=== PATIENT | female | born 1935 | race Native Hawaiian/Other Pacific Islander ===

== ENCOUNTER → 2016-07-14 | Outpatient (CLI) | payer MEDICARE, OTHER | LOC: RAD 14:18 | PROVIDERS: ATTEND Family Medicine | DX: M25.561 Pain in right knee (principal) ==

== ENCOUNTER → 2016-08-18 | Outpatient (CLI) | payer MEDICARE, OTHER | LOC: RAD 12:06 | PROVIDERS: ATTEND Orthopaedic Surgery | DX: M25.561 Pain in right knee (principal); M94.261 Chondromalacia, right knee ==

== ENCOUNTER → 2016-10-06 | Outpatient (CLI) | payer MEDICARE, OTHER ==
[2016-10-06 08:12] LABS: HEMATOCRIT 41.6 % (36.0-47.0); HEMOGLOBIN 13.9 g/dL (12.0-15.5); HGB HCT DIFFERENCE 0.1; MEAN CORPUSCULAR HGB CONC 33.5 g/dL (32.0-36.0); MEAN CORPUSCULAR VOLUME 87 fl (80-97); RED CELL DISTRIBUTION WIDTH 13.9 % (11.5-14.0); WHITE BLOOD COUNT 8.8 10^3/uL (4.0-10.5)
[2016-10-06 08:32] LABS: ALANINE AMINOTRANSFERASE 56 U/L (9-52); ALBUMIN 4.3 g/dL (3.5-5.0); ALKALINE PHOSPHATASE 128 U/L (38-126); ASPARTATE AMINO TRANSFERASE 44 U/L (14-36); BILIRUBIN,DIRECT 0.2 mg/dL (0.0-0.4); BILIRUBIN,TOTAL 0.5 mg/dL (0.2-1.3); CHOLESTEROL 239.43 mg/dL (0-200); Direct HDL 36 mg/dL (>40); TOTAL PROTEIN 6.8 g/dL (6.3-8.2); TRIGLYCERIDES 246 mg/dL (<150)
[2016-10-06 08:37] LABS: ANION GAP 11 (5-19); BLOOD UREA NITROGEN 18 mg/dL (7-20); CALCIUM 9.8 mg/dL (8.4-10.2); CARBON DIOXIDE 25 mmol/L (22-30); CHLORIDE 108 mmol/L (98-107); CREATININE RESULT 0.82 mg/dL (0.52-1.25); GLUCOSE 152 mg/dL (75-110); POTASSIUM 4.4 mmol/L (3.6-5.0); SODIUM 143.9 mmol/L (137-145)
[2016-10-06 08:43] LABS: DIRECT LDL 119 mg/dL (<100)
[2016-10-06 08:47] LABS: VLDL CHOLESTEROL 49.2 mg/dL (10-31)
== END ==
LOC: OD 07:17
PROVIDERS: ATTEND Internal Medicine Cardiovascular Disease
DX: R00.2 Palpitations (principal); E78.5 Hyperlipidemia, unspecified; E13.9 Other specified diabetes mellitus without complications; Z79.899 Other long term (current) drug therapy
CPT/HCPCS: 36415; 80048; 80061; 80076; 83036; 84443; 85027

== ENCOUNTER 2017-01-30 22:59 | Emergency (ER) | payer MEDICARE, OTHER ==
[2017-01-30 23:54] VITALS: BP 158/59
--- NOTE | 2017-01-31 00:47 | ER Document Report ---
ED General - General Chief Complaint: R ankle pain, numbness Stated Complaint: RIGHT ANKLE PAIN Time Seen by Provider: 01/31/17 00:32 Notes: 81-year-old female presents with right inner foot and ankle pain "it is blue" and numbness and tingling from her midfoot to her ankle onset a couple of hours ago, constant, now better after the compression sock was removed, in the setting of wearing a tight compression sock postop day 7 from a lateral knee replacement. She walks with a walker and has been elevating it. She has no calf swelling. Incision looks well with no redness or fever. She was sent here when she tried to call her orthopedist office. TRAVEL OUTSIDE OF THE [place] IN LAST 30 DAYS: No - Related Data Allergies/Adverse Reactions: aspirin [Aspirin] Allergy (Severe, Verified 11/05/13 09:13) itching on left heel erythromycin base [Erythromycin Base] Allergy (Severe, Verified 11/05/13 09:13) eye swelling simvastatin [Simvastatin] Allergy (Severe, Verified 11/05/13 09:13) unsure rxn sulfamethoxazole [From Septra] Allergy (Intermediate, Verified 11/05/13 09:13) Hives trimethoprim [From Septra] Allergy (Intermediate, Verified 11/05/13 09:13) Hives Past Medical History - General Information source: Patient - Social History Smoking Status: Never Smoker Family History: Reviewed & Not Pertinent - Past Medical History Cardiac Medical History: Reports: Hx Hypercholesterolemia, Hx Hypertension - on meds Denies: Hx Coronary Artery Disease, Hx Heart Attack Pulmonary Medical History: Reports: Hx Asthma - hx of//no meds, Hx Bronchitis - 2005, Hx Pneumonia Denies: Hx COPD Neurological Medical History: Denies: Hx Cerebrovascular Accident, Hx Seizures Endocrine Medical History: Reports: Hx Diabetes Mellitus Type 2 - diet controlled Renal/ Medical History: Denies: Hx Peritoneal Dialysis Musculoskeltal Medical History: 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 Denies: Hx Pacemaker - Immunizations Hx Diphtheria, Pertussis, Tetanus Vaccination: Yes Hx Pneumococcal Vaccination: 04/01/15 Review of Systems - Review of Systems Notes: REVIEW OF SYSTEMS GEN: Denies fever, chills, weight loss ENT: Denies sore throat, nasal discharge, ear pain EYES: Denies blurry vision, eye pain, discharge CV: Denies chest pain, palpitations, edema RESP: Denies cough, shortness of breath, wheezing GI: Denies abdominal pain, nausea, vomiting, diarrhea MSK: Denies joint pain/swelling, edema, SKIN: Denies rash, skin lesions LYMPH: Denies swollen glands/lymph nodes NEURO: Right inner foot PSYCH: Denies depression, suicidal or homicidal ideation PHYSICAL EXAMINATION General: No acute distress, well-nourished Head: Atraumatic, normocephalic ENT: Mouth normal, oropharynx moist, no exudates or tonsillar enlargement Eyes: Conjunctiva normal, pupils equal, lids normal Neck: No JVD, supple, no guarding CVS: Normal rate, regular rhythm, no murmurs Resp: No resp distress, equal and normal breath sounds bilaterally GI: Nondistended, soft, no tenderness to palpation, no rebound or guarding Ext: No deformities, right total knee replacement incision healing well with no significant edema or redness. No calf swelling. Mild swelling of the ankle at the site the patient indicates with no visible discoloration, good pulses, and full range of motion. T Back: No CVA or midline TTP Skin: No rash, warm Lymphatic: No lymphadeopathy noted Neuro: Awake, alert. Face symmetric. GCS 15. Subjective decreased sensation to light touch only on the medial left foot. Intact sensation to pinch ipsilateral to symptoms compared to contralateral side. Physical Exam - Vital signs Vitals: Temp Pulse Resp BP Pulse Ox 98.4 F 78 16 158/59 H 94 01/30/17 23:48 01/30/17 23:48 01/30/17 23:48 01/30/17 23:48 01/30/17 23:48 Course - Re-evaluation Re-evalutation: 01/31/17 00:51 Subjective skin discoloration and swelling in the distal right ankle below knee replacement in the setting of walking. Nurse found compression stocking pulled all the way down around the patient's ankle. When this was removed the color improved. I think the numbness is due to swelling rather than a nerve injury from the surgery or an acute arterial occlusion. She has a little bit of edema so this may be due to a DVT however we are not able to obtain ultrasound of the ED tonight and she is quite stable. Already taking Plavix. I arrange for her to have ultrasound in the morning and follow-up with Dr. morley which I think is an appropriate disposition. I have discussed with the patient there likely diagnosis, aftercare plan, follow -up plans and my usual and customary return precautions. They verbalized understanding of this. - Vital Signs Vital signs: Temp Pulse Resp BP Pulse Ox 98.4 F 78 16 158/59 H 94 01/30/17 23:48 01/30/17 23:48 01/30/17 23:48 01/30/17 23:48 01/30/17 23:48 Discharge - Discharge Clinical Impression: Numbness of right foot Condition: Good Disposition: HOME, SELF-CARE Additional Instructions: Emergency department for swelling and numbness to your right foot about a week after your knee surgery. Her numbness could be due to the swelling itself which is usually due to gravity but can be due to a blood clot. We are unable to perform testing for a blood clot tonight in the emergency department however if you call the phone number listed under discharge instructions can schedule ultrasound for tomorrow morning. Your orthopedic surgeon will be the results of the study. Her ultrasound is abnormally will be directed immediately to the emergency department otherwise she will be sent home and your doctor can follow- up your testing results.
== END 2017-01-31 01:03 | disposition home or self-care (01) ==
LOC: ER 22:59
DX: R20.0 Anesthesia of skin (principal); M25.571 Pain in right ankle and joints of right foot; M25.471 Effusion, right ankle; M79.671 Pain in right foot; R60.9 Edema, unspecified; E11.9 Type 2 diabetes mellitus without complications; I10 Essential (primary) hypertension; J45.909 Unspecified asthma, uncomplicated; Z96.651 Presence of right artificial knee joint; Z88.6 Allergy status to analgesic agent; Z88.1 Allergy status to other antibiotic agents; Z88.8 Allergy status to other drugs, medicaments and biological substances; Z79.02 Long term (current) use of antithrombotics/antiplatelets
CPT/HCPCS: 99283

== ENCOUNTER → 2017-01-31 | Outpatient (CLI) | payer MEDICARE, OTHER ==
--- NOTE | 2017-01-31 13:39 | RADIOLOGY REPORT (SQ) ---
EXAM DESCRIPTION: VENOUS UNILATERAL LOWER COMPLETED DATE/TIME: 01/31/2017 1:32 pm REASON FOR STUDY: RLE SWELLING M79.89 OTHER SPECIFIED SOFT TISSUE DISORDERS COMPARISON: None. TECHNIQUE: Dynamic and static patel scale and color images acquired of the right leg venous system. S elected spectral images acquired with additional compression and augmentation maneuvers. The contrala teral common femoral vein and saphenofemoral junction were also imaged. Images stored on PACS. LIMITATIONS: None. FINDINGS: COMMON FEMORAL: Normal phasicity, compression and augmentation. No visualized echogenic ma terial on patel scale. No defects on color images. FEMORAL: Normal compression and augmentation. No visualized echogenic material on patel scale. No defe cts on color images. POPLITEAL: Normal compression, augmentation. No visualized echogenic material on patel scale. No defec ts on color images. CALF VESSELS: Normal compression, augmentation. No visualized echogenic material on patel scale. No de fects on color images. GSV and SSV: Normal compression, augmentation. No visualized echogenic material on patel scale. No def ects on color images. ANY DEEP VENOUS INSUFFICIENCY: Not evaluated. ANY EVIDENCE OF POPLITEAL CYST: No. OTHER: No other significant finding. CONTRALATERAL COMMON FEMORAL VEIN AND SAPHENOFEMORAL JUNCTION: Normal phasicity, compression and augmentation. No visualized echogenic material on patel scale. No de fects on color images. IMPRESSION: NO EVIDENCE OF DVT OR SVT IN THE RIGHT LEG. TECHNICAL DOCUMENTATION: JOB ID: [id number] [employer]- All Rights Reserved
== END ==
LOC: SP 12:58
PROVIDERS: ATTEND Emergency Medicine
DX: M79.89 Other specified soft tissue disorders (principal)
CPT/HCPCS: 93971

== ENCOUNTER 2017-02-05 16:32 | Emergency (ER) | payer MEDICARE, OTHER ==
--- NOTE | 2017-02-05 17:25 | ER Document Report ---
ED General - General Chief Complaint: Urinary Problem Stated Complaint: UNABLE TO URINATE Time Seen by Provider: 02/05/17 16:55 TRAVEL OUTSIDE OF THE [place] IN LAST 30 DAYS: No - Related Data Allergies/Adverse Reactions: aspirin [Aspirin] Allergy (Severe, Verified 02/05/17 16:43) itching on left heel erythromycin base [Erythromycin Base] Allergy (Severe, Verified 02/05/17 16:43) eye swelling simvastatin [Simvastatin] Allergy (Severe, Verified 02/05/17 16:43) unsure rxn sulfamethoxazole [From Septra] Allergy (Intermediate, Verified 02/05/17 16:43) Hives trimethoprim [From Septra] Allergy (Intermediate, Verified 02/05/17 16:43) Hives Past Medical History - Social History Smoking Status: Never Smoker Cigarette use (# per day): No Chew tobacco use (# tins/day): No Smoking Education Provided: No Family History: Reviewed & Not Pertinent - Past Medical History Cardiac Medical History: Reports: Hx Hypercholesterolemia, Hx Hypertension - on meds Denies: Hx Coronary Artery Disease, Hx Heart Attack Pulmonary Medical History: Reports: Hx Asthma - hx of//no meds, Hx Bronchitis - 2005, Hx Pneumonia Denies: Hx COPD Neurological Medical History: Denies: Hx Cerebrovascular Accident, Hx Seizures Endocrine Medical History: Reports: Hx Diabetes Mellitus Type 2 - diet controlled Renal/ Medical History: Denies: Hx Peritoneal Dialysis Musculoskeltal Medical History: 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 Denies: Hx Pacemaker - Immunizations Hx Diphtheria, Pertussis, Tetanus Vaccination: Yes Hx Pneumococcal Vaccination: 04/01/15 Physical Exam - Vital signs Vitals: Temp Pulse Resp BP Pulse Ox 97.7 F 94 18 127/67 H 95 02/05/17 16:41 02/05/17 16:41 02/05/17 16:41 02/05/17 16:41 02/05/17 16:41 Course - Re-evaluation Re-evalutation: 02/05/17 17:24 Mendoza catheter was immediately placed, small amount of urine was obtained but then it got stuck in the Mendoza, I have asked the tech to flush the Mendoza - Vital Signs Vital signs: Temp Pulse Resp BP Pulse Ox 97.7 F 94 18 127/67 H 95 02/05/17 16:41 02/05/17 16:41 02/05/17 16:41 02/05/17 16:41 02/05/17 16:41 - Laboratory Result Diagrams: 02/05/17 18:00 02/05/17 18:00 Laboratory results interpreted by me: 02/05/17 02/05/17 02/05/17 17:43 18:00 18:00 WBC 10.8 H Est GFR ( Amer) 52 L Est GFR (Non-Af Amer) 43 L Glucose 112 H AST 37 H Urine Protein 100 H Urine Blood LARGE H Ur Leukocyte Esterase MODERATE H Urine Ascorbic Acid 40 H Discharge - Discharge Clinical Impression: UTI (urinary tract infection) Qualifiers: Urinary tract infection type: acute cystitis Hematuria presence: with hematuria Qualified Code(s): N30.01 - Acute cystitis with hematuria Condition: Stable Disposition: HOME, SELF-CARE Instructions: Urinary Tract Infection ([facility]) Prescriptions: Cephalexin Monohydrate [Keflex 500 mg Capsule] 500 mg PO BID #20 capsule Referrals: AUDREY CAMARGO MD [Primary Care Provider] - Follow up tomorrow
[2017-02-05] MEDS ORDERED: NORMAL SALINE 1000 ML 1,000 ML IV ONE (17:42)
[2017-02-05 18:15] LABS: APPEARANCE,URINE TURBID; BILIRUBIN,URINE NEGATIVE (NEGATIVE); GLUCOSE, URINE NEGATIVE (NEGATIVE); KETONES,URINE NEGATIVE (NEGATIVE); LEUKOCYTE ESTERASE,URINE MODERATE (NEGATIVE); NITRITE,URINE NEGATIVE (NEGATIVE); PROTEIN,URINE 100 mg/dL (NEGATIVE); URINE SPECIFIC GRAVITY 1.028; UROBILINOGEN,URINE NEGATIVE mg/dL (<2.0)
[2017-02-05] MEDS ORDERED: CEFTRIAXONE 1 GM/D5W RTU 50 ML IV ONE (18:25)
[2017-02-05 18:26] LABS: ABSOLUTE BASOPHILS # (AUTO) 0.1 10^3/uL (0.0-0.2); ABSOLUTE EOSINOPHILS # (AUTO) 0.4 10^3/uL (0.0-0.6); ABSOLUTE LYMPHOCYTES (AUTO) 2.4 10^3/uL (0.5-4.7); ABSOLUTE MONOCYTES (AUTO) 1.1 10^3/uL (0.1-1.4); ABSOLUTE NEUT (AUTO) 6.8 10^3/uL (1.7-8.2); BASOPHILS % (AUTO) 0.6 % (0-2); EOSINOPHILS % (AUTO) 3.9 % (0-6); HEMATOCRIT 36.6 % (36.0-47.0); HEMOGLOBIN 12.3 g/dL (12.0-15.5); HGB HCT DIFFERENCE 0.3; LYMPHOCYTES % (AUTO) 22.1 % (13-45); MEAN CORPUSCULAR HEMOGLOBIN 29.6 pg (27.0-33.4); MEAN CORPUSCULAR HGB CONC 33.5 g/dL (32.0-36.0); MEAN CORPUSCULAR VOLUME 88 fl (80-97); MONOCYTES % (AUTO) 10.6 % (3-13); RED BLOOD COUNT 4.14 10^6/uL (3.72-5.28); RED CELL DISTRIBUTION WIDTH 13.5 % (11.5-14.0); SEGMENTED NEUTROPHILS % (AUTO) 62.8 % (42-78); WHITE BLOOD COUNT 10.8 10^3/uL (4.0-10.5)
--- NOTE | 2017-02-05 18:43 | RADIOLOGY REPORT (SQ) ---
EXAM DESCRIPTION: CT LTD RENAL STONE PROTOCOL ON COMPLETED DATE/TIME: 02/05/2017 6:29 pm REASON FOR STUDY: difficulty urinating COMPARISON: None. TECHNIQUE: CT scan of the abdomen and pelvis performed without intravenous or oral contrast. Images reviewed with lung, soft tissue, and bone windows. Reconstructed coronal and sagittal MPR images revi ewed. All images stored on PACS. All CT scanners at this facility use dose modulation, iterative reconstruction, and/or weight based d osing when appropriate to reduce radiation dose to as low as reasonably achievable (ALARA). [facility]: Dose Right [facility]: CareDose [facility]: Dose Right [facility]: Teradose 4D [facility]: Smart Extenda-Dent RADIATION DOSE: Up-to-date CT equipment and radiation dose reduction techniques were employed. CTDIv ol: 12.5 mGy. DLP: 606 mGy-cm.mGy. LIMITATIONS: None. FINDINGS: LOWER CHEST: No significant findings. No nodules or infiltrates. NON-CONTRASTED LIVER, SPLEEN, ADRENALS: Evaluation limited by lack of IV contrast. No identified sign ificant masses. PANCREAS: No masses. No peripancreatic inflammatory changes. GALLBLADDER: No identified stones by CT criteria. No inflammatory changes to suggest cholecystitis. RIGHT KIDNEY AND URETER: No suspicious masses. Assessment limited by lack of IV contrast. Tiny nono bstructing right renal calculus is identified. No hydronephrosis or hydroureter. LEFT KIDNEY AND URETER: No suspicious masses. Assessment limited by lack of IV contrast. No signifi cant calcifications. No hydronephrosis or hydroureter. AORTA AND RETROPERITONEUM: No aneurysm. No retroperitoneal masses or adenopathy. BOWEL AND PERITONEAL CAVITY: No obvious masses or inflammatory changes. No free fluid. APPENDIX: Normal. PELVIS, BLADDER, AND ABDOMINAL WALL:No abnormal masses. No free fluid. Bladder is in a decompressed state. Mendoza catheter is identified in the bladder. A small amount of air is identified in the blad jhoana presumably related to the Mendoza catheter. BONES: No significant findings. OTHER: No other significant finding. IMPRESSION: Small nonobstructing right renal calculus. No other renal ureteric calculi are identifi ed. Mendoza catheter is identified in the bladder. A small amount of air is identified in the bladder presumably related to the Mendoza catheter. Other findings as noted above TECHNICAL DOCUMENTATION: JOB ID: [id number] Quality ID # [id number]: Final reports with documentation of one or more dose reduction techniques (e.g., Au tomated exposure control, adjustment of the mA and/or kV according to patient size, use of iterative reconstruction technique) 2010 [employer]- All Rights Reserved
[2017-02-05 18:50] LABS: ALANINE AMINOTRANSFERASE 45 U/L (9-52); ALBUMIN 3.9 g/dL (3.5-5.0); ALKALINE PHOSPHATASE 94 U/L (38-126); ANION GAP 9 (5-19); ASPARTATE AMINO TRANSFERASE 37 U/L (14-36); BILIRUBIN,DIRECT 0.4 mg/dL (0.0-0.4); BILIRUBIN,TOTAL 0.6 mg/dL (0.2-1.3); BLOOD UREA NITROGEN 20 mg/dL (7-20); CALCIUM 9.4 mg/dL (8.4-10.2); CARBON DIOXIDE 25 mmol/L (22-30); CHLORIDE 105 mmol/L (98-107); GLUCOSE 112 mg/dL (75-110); POTASSIUM 4.5 mmol/L (3.6-5.0); SODIUM 138.9 mmol/L (137-145); TOTAL PROTEIN 7.1 g/dL (6.3-8.2)
[2017-02-05 20:01] VITALS: BP 132/52
== END 2017-02-05 20:30 | disposition home or self-care (01) ==
LOC: ER 16:32
DX: N30.01 Acute cystitis with hematuria (principal); R39.198 Other difficulties with micturition
CPT/HCPCS: 99284; 96361; 51702; 96365; 36415; 87086; 85025; 87088; 80053; 81001; 87186; 83605; 76380; J7030; J0696

== ENCOUNTER → 2017-07-09 | Outpatient (CLI) | payer MEDICARE, OTHER ==
[2017-07-09 18:14] LABS: T.VAGINALIS (WET MOUNT) NO TRICHOMONAS SEEN
[2017-07-09 18:15] LABS: BACTERIA (WET MOUNT) 3+ BACTERIA SEEN; EPITHELIALS (WET MOUNT) 4+ EPITHELIALS SEEN; WBCS (WET MOUNT) RARE WBCS SEEN; YEAST (WET MOUNT) NO YEAST SEEN
== END ==
LOC: LAB 17:48
PROVIDERS: ATTEND Nurse Practitioner Acute Care
DX: N89.8 Other specified noninflammatory disorders of vagina (principal); R30.0 Dysuria
CPT/HCPCS: 87086; 87088; 87210

== ENCOUNTER → 2017-12-12 | Outpatient (CLI) | payer MEDICARE, OTHER ==
--- NOTE | 2017-12-12 12:46 | RADIOLOGY REPORT (SQ) ---
EXAM DESCRIPTION: U/S THYROID/SFT TISS HD NECK COMPLETED DATE/TIME: 12/12/2017 10:46 am REASON FOR STUDY: THYROID NODULE (E04.1) E04.1 NONTOXIC SINGLE THYROID NODULE COMPARISON: None. TECHNIQUE: Dynamic and static patel-scale images acquired of the thyroid gland. Selected additional c olor/power Doppler images recorded. All images stored to PACS. LIMITATIONS: None. FINDINGS: The thyroid gland is grossly normal size, but diffusely heterogeneous in echogenicity with multiple bilateral less than 1 cm colloid cysts and small less than 1 cm nodules present. Right lobe thyroid measures 5 x 2 x 1.5 cm in size. Left lobe thyroid measures 4.4 x 3 x 2.4 cm in size. In the mid pole left lobe thyroid, a 2.7 x 3 cm complex solid nodule is present. IMPRESSION: Left midpole gland complex 2.7 x 3 cm solid nodule. Fine-needle aspirate of this is rec ommended. Remainder of the thyroid gland demonstrates multiple subcentimeter benign colloid cysts and subcentim eter benign-appearing nodules. TECHNICAL DOCUMENTATION: JOB ID: [id number] [employer]- All Rights Reserved Reading location - IP/workstation name: [email or web address]
== END ==
LOC: RAD 09:15
PROVIDERS: ATTEND Family Medicine
DX: E04.1 Nontoxic single thyroid nodule (principal)
CPT/HCPCS: 76536

== ENCOUNTER → 2018-10-10 | Outpatient (CLI) | payer MEDICARE, OTHER ==
--- NOTE | 2018-10-10 17:46 | XCELERA REPORT ---
[address] [address] Transthoracic Echocardiogram Report Name: BHARAT TOMPKINS Age: 83 yrs Gender: Female : 1935 Patient Status: Outpatient Patient Location: [facility] Study Date: 10/10/2018 10:23 AM Height: 59 in Weight: 170 lb BSA: 1.7 m2 Procedure: A complete two-dimensional transthoracic echocardiogram was performed (2D, M-mode, spectral and color flow Doppler). The study was technically adequate with some images being suboptimal in quality. Reason For Study: MURMUR Ordering Physician: AUDREY MOSLEY Performed By: Demetrius Young Interpretation Summary The left ventricular ejection fraction is normal. There is borderline concentric left ventricular hypertrophy. The left ventricle is grossly normal size. Doppler measurements suggest pseudonormalized left ventricular relaxation, which is associated with grade II/IV or mild to moderate diastolic dysfunction Wall motion cannot be accurately commented on, but no definite regional wall motion abnormalities noted. The right ventricular systolic function is normal. The left atrium is mildly dilated. The right atrium is normal in size There is a mild amount of mitral regurgitation There is no mitral valve stenosis. There is mild to moderate aortic stenosis There is a peak gradient of 25-30 mm of Hg. There is a trace amount of aortic regurgitation There is a trace or physiologic amount of tricuspid regurgitation Tricuspid regurgitation jet envelope not well defined to measure RV systolic pressure accurately. The aortic root is not well visualized but is probably normal size. The inferior vena cava was not well visualized There is no pericardial effusion. MMode/2D Measurements & Calculations RVDd: 3.0 cm LVIDd: 4.6 cm FS: 39.3 % Ao root diam: 2.5 cm IVSd: 1.0 cm LVIDs: 2.8 cm EDV(Teich): 99.8 ml Ao root area: 4.9 cm2 LVPWd: 1.00 cm ESV(Teich): 30.2 ml LA dimension: 4.1 cm EF(Teich): 69.8 % LVOT diam: 1.9 cm LVOT area: 2.9 cm2 Doppler Measurements & Calculations MV E max koko: MV P1/2t max koko: Ao V2 max: LV V1 max P.4 cm/sec 78.4 cm/sec 263.0 cm/sec 4.8 mmHg MV A max koko: MV P1/2t: 91.3 msec Ao max PG: LV V1 mean P.6 cm/sec MVA(P1/2t): 2.4 cm2 27.7 mmHg 2.6 mmHg MV E/A: 0.74 MV dec slope: Ao V2 mean: LV V1 max: 181.8 cm/sec 108.7 cm/sec 251.5 cm/sec2 Ao mean PG: LV V1 mean: MV dec time: 0.36 sec 14.8 mmHg 75.2 cm/sec Ao V2 VTI: 59.5 cm LV V1 VTI: 30.2 cm LYSSA(I,D): 1.5 cm2 LYSSA(V,D): 1.2 cm2 SV(LVOT): 87.9 ml PA V2 max: PI end-d koko: TR max koko: 93.8 cm/sec 130.3 cm/sec 264.2 cm/sec PA max P.5 mmHg TR max P.9 mmHg MV P1/2t-pr_phl: 91.3 msec Left Ventricle The left ventricle is grossly normal size. There is borderline concentric left ventricular hypertrophy. The left ventricular ejection fraction is normal. Doppler measurements suggest pseudonormalized left ventricular relaxation, which is associated with grade II/IV or mild to moderate diastolic dysfunction. Wall motion cannot be accurately commented on, but no definite regional wall motion abnormalities noted. Right Ventricle The right ventricle is grossly normal size. There is normal right ventricular wall thickness. The right ventricular systolic function is normal. Atria The right atrium is normal in size. The left atrium is mildly dilated. Interarterial septum not well visualized and not well dopplered. Cannot comment on ASD/PFO presence. Mitral Valve There is mild mitral leaflet calcification. There is mild mitral annular calcification. There is no mitral valve stenosis. There is a mild amount of mitral regurgitation. Aortic Valve The aortic valve is not well visualized secondary to technical limitations. There is mild to moderate aortic stenosis. There is a peak gradient of 25-30 mm of Hg. There is a trace amount of aortic regurgitation. Tricuspid Valve The tricuspid valve is not well visualized secondary to technical limitations. There is no tricuspid stenosis. There is a trace or physiologic amount of tricuspid regurgitation. Tricuspid regurgitation jet envelope not well defined to measure RV systolic pressure accurately. Pulmonic Valve The pulmonic valve is not well visualized. Great Vessels The aortic root is not well visualized but is probably normal size. The inferior vena cava was not well visualized. Effusions There is no pericardial effusion. : AUDREY MOSLEY > Franky Akins
== END ==
LOC: SP 09:45
PROVIDERS: ATTEND Family Medicine
DX: R01.1 Cardiac murmur, unspecified (principal)
CPT/HCPCS: 93306

== ENCOUNTER → 2018-11-04 | Outpatient (CLI) | payer MEDICARE, OTHER ==
--- NOTE | 2018-11-04 14:32 | RADIOLOGY REPORT (SQ) ---
EXAM DESCRIPTION: KNEE RIGHT 4 VIEWS COMPLETED DATE/TIME: 11/04/2018 2:02 pm REASON FOR STUDY: UNILATERAL PRIMARY OSTEOARTHRITIS, RIGHT KNEE M17.11 UNILATERAL PRIMARY OSTEOARTH RITIS, RIGHT KNEE M54.16 RADICULOPATHY, LUMBAR REGION COMPARISON: 07/14/2016 NUMBER OF VIEWS: Four views. TECHNIQUE: AP, lateral, and both oblique radiographic images acquired of the right knee. LIMITATIONS: None. FINDINGS: MINERALIZATION: Normal. BONES: Since the prior examination, interval total right knee arthroplasty. No radiographic evidenc e of loosening or infection. No acute fracture or dislocation. JOINT: No effusion. SOFT TISSUES: No soft tissue swelling. No radio-opaque foreign body. OTHER: No other significant finding. IMPRESSION: 1. Cyst since the prior study dated 07/14/2016, interval total right knee arthroplasty. 2. No acute osseous findings. TECHNICAL DOCUMENTATION: JOB ID: [id number] [employer]- All Rights Reserved Reading location - IP/workstation name: [email or web address]
--- NOTE | 2018-11-04 14:34 | RADIOLOGY REPORT (SQ) ---
EXAM DESCRIPTION: LUMBAR SPINE COMPLETE COMPLETED DATE/TIME: 11/04/2018 2:02 pm REASON FOR STUDY: RADICULOPATHY, LUMBAR REGION M17.11 UNILATERAL PRIMARY OSTEOARTHRITIS, RIGHT KNEE M54.16 RADICULOPATHY, LUMBAR REGION COMPARISON: None. NUMBER OF VIEWS: Five views including obliques. TECHNIQUE: AP, lateral, oblique, and sacral radiographic images acquired of the lumbar spine. LIMITATIONS: None. FINDINGS: MINERALIZATION: Normal. SEGMENTATION: Normal. No transitional anatomy. ALIGNMENT: Normal. VERTEBRAE: Maintained height. No fracture or worrisome bone lesion. DISCS: Multilevel disc space narrowing, more pronounced at L4-5 and L5-S1. Small anterior and poste rior osteophytes which encroach on the foramina. Degenerative changes involving the visualized lower thoracic spine. POSTERIOR ELEMENTS: Mild multilevel facet arthrosis. Pedicles are intact. No pars defect or oak tanner ior arch defects. HARDWARE: None in the spine. PARASPINAL SOFT TISSUES: Normal. PELVIS: Intact as visualized. No fractures or worrisome bone lesions. SI joints intact. OTHER: Atherosclerotic changes involving the abdominal aorta and pelvic vasculature. IMPRESSION: 1. Degenerative lumbar spondylosis and disc disease more pronounced at L4-5 and L5-S1. 2. No acute osseous findings. TECHNICAL DOCUMENTATION: JOB ID: [id number] [employer]- All Rights Reserved Reading location - IP/workstation name: [email or web address]
== END ==
LOC: OD 13:39
PROVIDERS: ATTEND Family Medicine
DX: M17.11 Unilateral primary osteoarthritis, right knee (principal); M54.16 Radiculopathy, lumbar region
CPT/HCPCS: 72110

== ENCOUNTER 2018-12-05 12:38 | Emergency (ER) | payer MEDICARE, OTHER ==
--- NOTE | 2018-12-05 12:53 | ER Document Report ---
ED Medical Screen (RME) - General Chief Complaint: Rib Pain Stated Complaint: FALL/RIB PAIN Time Seen by Provider: 12/05/18 12:49 Primary Care Provider: AUDREY MOSLEY DO [Primary Care Provider] - Follow up as needed Mode of Arrival: Ambulatory Information source: Patient Notes: Patient is an 83-year-old female presenting to the emergency department after falling today. Patient at the time of my assessment is in the lobby sitting in chair. Per the nursing staff she ambulated into the department and sat down refusing to do anything else until he provider came to [facility] to see her. Patient reports that she fell earlier and she has pain to her left anterior chest wall. She denies any shortness of breath but states the pain is worse with deep breaths. Patient denies striking her head. Order was placed for x- rays. Lung sounds are present bilaterally but diminished, likely due to patient's refusal to take a deep breath. Patient refusing vital signs. I have greeted and performed a rapid initial assessment of this patient. A comprehensive ED assessment and evaluation of the patient, analysis of test results and completion of the medical decision making process will be conducted by additional ED providers. Dictation of this chart was performed using voice recognition software; therefore, there may be some unintended grammatical errors. TRAVEL OUTSIDE OF THE [place] IN LAST 30 DAYS: No - Related Data Allergies/Adverse Reactions: aspirin [Aspirin] Allergy (Severe, Verified 12/05/18 12:47) itching on left heel erythromycin base [Erythromycin Base] Allergy (Severe, Verified 12/05/18 12:47) eye swelling simvastatin [Simvastatin] Allergy (Severe, Verified 12/05/18 12:47) unsure rxn sulfamethoxazole [From Septra] Allergy (Intermediate, Verified 12/05/18 12:47) Hives trimethoprim [From Septra] Allergy (Intermediate, Verified 12/05/18 12:47) Hives Past Medical History - Social History Family history: Reviewed & Not Pertinent - Past Medical History Cardiac Medical History: Reports: Hx Hypercholesterolemia, Hx Hypertension - on meds Denies: Hx Coronary Artery Disease, Hx Heart Attack Pulmonary Medical History: Reports: Hx Asthma - hx of//no meds, Hx Bronchitis - 2006, Hx Pneumonia Denies: Hx COPD Neurological Medical History: Denies: Hx Cerebrovascular Accident, Hx Seizures Endocrine Medical History: Reports: Hx Diabetes Mellitus Type 2 - diet controlled Renal/ Medical History: Denies: Hx Peritoneal Dialysis Musculoskeltal Medical History: 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 Denies: Hx Pacemaker - Immunizations Hx Diphtheria, Pertussis, Tetanus Vaccination: Yes Doctor's Discharge - Discharge Referrals: AUDREY MOSLEY DO [Primary Care Provider] - Follow up as needed
--- NOTE | 2018-12-05 13:57 | RADIOLOGY REPORT (SQ) ---
EXAM DESCRIPTION: RIBS LEFT W/PA CHEST COMPLETED DATE/TIME: 12/05/2018 1:46 pm REASON FOR STUDY: fall, left anterior rib pain COMPARISON: 06/07/2016. TECHNIQUE: Frontal view of the chest and additional views of the left ribs acquired. NUMBER OF VIEWS: Three view. LIMITATIONS: None. FINDINGS: FRONTAL CXR: No pneumothorax. No pleural effusion. No atelectasis or infiltrates. RIBS: No displaced rib fractures. No lytic or blastic bony lesions. OTHER: No other significant finding. IMPRESSION: NO PNEUMOTHORAX. NO DISPLACED RIB FRACTURES. COMMENT: SITE OF TRAUMA/COMPLAINT MARKED/STAMP COMPLETED: YES. TECHNICAL DOCUMENTATION: JOB ID: [id number] [employer]- All Rights Reserved Reading location - IP/workstation name: [email or web address]
[2018-12-05 14:45] VITALS: BP 146/59
--- NOTE | 2018-12-05 15:04 | ER Document Report ---
ED General Pain - General Chief Complaint: Rib Pain Stated Complaint: FALL/RIB PAIN Time Seen by Provider: 12/05/18 12:49 Primary Care Provider: AUDREY MOSLEY DO [Primary Care Provider] - Follow up as needed Mode of Arrival: Ambulatory Notes: 83-year-old female patient states that she tripped over an object and landed on her left chest. Thinks she broke her rib. No shortness of breath but does hurt to take a deep breath. Hurts to palpate. Denies any other injuries. Denies any abdominal pain, leg pain, hip pain. Did not hit her head. No loss of consciousness. TRAVEL OUTSIDE OF THE [place] IN LAST 30 DAYS: No - HPI Onset: Just prior to arrival Onset/Duration: Sudden - Related Data Allergies/Adverse Reactions: aspirin [Aspirin] Allergy (Severe, Verified 12/05/18 12:47) itching on left heel erythromycin base [Erythromycin Base] Allergy (Severe, Verified 12/05/18 12:47) eye swelling simvastatin [Simvastatin] Allergy (Severe, Verified 12/05/18 12:47) unsure rxn sulfamethoxazole [From Septra] Allergy (Intermediate, Verified 12/05/18 12:47) Hives trimethoprim [From Septra] Allergy (Intermediate, Verified 12/05/18 12:47) Hives Past Medical History - General Information source: Patient - Social History Smoking Status: Never Smoker Frequency of alcohol use: None Drug Abuse: None Lives with: Spouse/Significant other Family History: Reviewed & Not Pertinent - Past Medical History Cardiac Medical History: Reports: Hx Hypercholesterolemia, Hx Hypertension - on meds Denies: Hx Coronary Artery Disease, Hx Heart Attack Pulmonary Medical History: Reports: Hx Asthma - hx of//no meds, Hx Bronchitis - 2005, Hx Pneumonia Denies: Hx COPD Neurological Medical History: Denies: Hx Cerebrovascular Accident, Hx Seizures Endocrine Medical History: Reports: Hx Diabetes Mellitus Type 2 - diet controlled Renal/ Medical History: Denies: Hx Peritoneal Dialysis Musculoskeletal Medical History: 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 Denies: Hx Pacemaker - Immunizations Hx Diphtheria, Pertussis, Tetanus Vaccination: Yes Hx Pneumococcal Vaccination: 04/01/15 Review of Systems - Review of Systems Notes: Constitutional: denies: Chills, Diaphoresis, Fever, Malaise, Weakness EENT: denies: Eye discharge, Blurred vision, Tearing, Double vision, Nose congestion, Nose discharge, Throat swelling, Mouth pain Cardiovascular: denies: Palpitations, Heart racing, Orthopnea, Dyspnea, Chest pain Respiratory: denies: Cough, Hurts to breathe, Wheezing, Shortness of breath Gastrointestinal: denies: Abdominal pain, Diarrhea, Nausea, Vomiting, Black stools, bright red blood in stool Genitourinary: denies: Burning, Dysuria, Discharge, Frequency, Flank pain, Hematuria Musculoskeletal: denies: Joint pain, Joint swelling, Muscle pain, Muscle stiffness, back pain and complaining of left chest wall pain Hematologic/Lymphatic: denies: Anemia, Easy bleeding, Easy bruising, Blood clots Neurological/Psychological: denies: Confusion, Dementia, Depression, Loss of consciousness Skin: No lesions, no masses, no skin breakdown, no abscesses Physical Exam - Vital signs Vitals: Temp Pulse Resp BP Pulse Ox 97.7 F 67 18 146/59 H 96 12/05/18 14:34 12/05/18 14:34 12/05/18 14:34 12/05/18 14:34 12/05/18 14:34 Interpretation: Normal - General General appearance: Appears well, Alert - HEENT Head: Normocephalic, Atraumatic Eyes: Normal Pupils: PERRL - Respiratory Respiratory status: No respiratory distress Chest status: Nontender Breath sounds: Normal Chest palpation: Normal - Cardiovascular Rhythm: Regular Heart sounds: Normal auscultation Murmur: No Notes: Tenderness to palpation at the left lateral chest wall. No obvious bruising. No subcutaneous emphysema. No crepitus. - Abdominal Inspection: Normal Distension: No distension Bowel sounds: Normal Tenderness: Nontender Organomegaly: No organomegaly - Back Back: Normal, Nontender - Extremities General upper extremity: Normal inspection, Nontender, Normal color, Normal ROM, Normal temperature General lower extremity: Normal inspection, Nontender, Normal color, Normal ROM, Normal temperature, Normal weight bearing. No: Jannet's sign - Neurological Neuro grossly intact: Yes Cognition: Normal Orientation: AAOx4 Mikie Coma Scale Eye Opening: Spontaneous Brashear Coma Scale Verbal: Oriented Brashear Coma Scale Motor: Obeys Commands Brashear Coma Scale Total: 15 Speech: Normal Motor strength normal: LUE, RUE, LLE, RLE Sensory: Normal - Psychological Associated symptoms: Normal affect, Normal mood - Skin Skin Temperature: Warm Skin Moisture: Dry Skin Color: Normal Course - Re-evaluation Re-evalutation: 12/05/18 15:02 Ribs w/Chest X-Ray 12/05/18 12:49 IMPRESSION: NO PNEUMOTHORAX. NO DISPLACED RIB FRACTURES. 12/05/18 18:51 No obvious rib fractures or displaced rib fractures. No pneumothorax. Pain medication given. Will discharge at this time in stable condition. - Vital Signs Vital signs: Temp Pulse Resp BP Pulse Ox 97.7 F 67 18 146/59 H 96 12/05/18 14:34 12/05/18 14:34 12/05/18 14:34 12/05/18 14:34 12/05/18 14:34 Discharge - Discharge Clinical Impression: Rib pain on left side Chest wall contusion Qualifiers: Encounter type: initial encounter Laterality: left Qualified Code(s): S20.212A - Contusion of left front wall of thorax, initial encounter Condition: Good Disposition: HOME, SELF-CARE Instructions: Chest Wall Pain ([facility]), Rib Injuries and Fractures ([facility]) Additional Instructions: If your rib pain is getting worse over the next week he may need to repeat x- ray. You may take some strong pain medication for a few days but know that it can cause constipation. You may want to use some Metamucil or MiraLAX or some stool softeners to prevent this. In the event that you get worse feel free to return for repeat evaluation. Prescriptions: Docusate Sodium [Colace 100 mg Capsule] 100 mg PO DAILY 15 Days #30 capsule Hydrocodone/Acetaminophen [[place] 5-325 mg Tablet] 0.5 tab PO Q6 PRN #12 tablet PRN Reason: Pain Scale Of 4 Referrals: AUDREY MOSLEY DO [Primary Care Provider] - Follow up as needed
== END 2018-12-05 14:50 | disposition home or self-care (01) ==
LOC: ER 12:38
DX: S20.212A Contusion of left front wall of thorax, initial encounter (principal); R07.81 Pleurodynia; R06.00 Dyspnea, unspecified; W01.0XXA Fall on same level from slipping, tripping and stumbling without subsequent striking against object, initial encounter; E78.00 Pure hypercholesterolemia, unspecified; I10 Essential (primary) hypertension; E11.9 Type 2 diabetes mellitus without complications; Z90.710 Acquired absence of both cervix and uterus; Z88.3 Allergy status to other anti-infective agents; Z88.6 Allergy status to analgesic agent
CPT/HCPCS: 99283

== ENCOUNTER 2018-12-23 07:15 | Day surgery (SDC) | payer MEDICARE, OTHER ==
[~2018-12-23 07:15] MED LIST: PROPOFOL INJ 200 MG/20 ML VIAL IV ONE
[2018-12-23 09:11] VITALS: BP 132/66
--- NOTE | 2018-12-23 13:25 | Operative Report ---
Operative Report DATE OF SURGERY: 12/23/18 Operative Report: The risks, benefits and alternatives of the procedure including the risk of bleeding, perforation requiring surgery have been explained to the patient in detail and informed consent has been obtained. Patient is placed in a left, lateral decubital position. Timeout was called. Propofol medication is administered. Rectal examination is done which did not reveal any masses, tears or fissures. An Olympus videoscope was introduced into the patient's rectum. The scope was then carefully advanced all the way to the cecum. The cecum was identified by the usual anatomical landmarks including the ileocecal valve as well as the appendiceal office. Photodocumentation is obtained. The scope was then sequentially pulled back via the various segments of the colon including the ascending colon, hepatic flexure, transverse colon, splenic flexure, descend ing colon and finally into the rectosigmoid portions of the colon. Retroflexion maneuvers performed. PREOPERATIVE DIAGNOSIS: Personal history of polyp POSTOPERATIVE DIAGNOSIS: Transverse colon polyp removed via biopsy forceps. Internal hemorrhoids OPERATION: Colonoscopy with biopsy SURGEON: BRAYDON GIBBS ANESTHESIA: LMAC TISSUE REMOVED OR ALTERED: As noted above. COMPLICATIONS: None. ESTIMATED BLOOD LOSS: None. INTRAOPERATIVE FINDINGS: As noted above. PROCEDURE: Patient tolerated the procedure well. No immediate postprocedure complications are noted. Patient is discharged in good condition. Discharge date 12/23/2018. Discharge diet: Regular. Discharge activity: Regular. 2 to 3-week follow-up to discuss findings. Patient is instructed to call the office or proceed to the emergency room should there be any further problems or questions. Wait on the pathology. 5-year surveillance colonoscopy.
== END 2018-12-23 09:13 | disposition home or self-care (01) ==
LOC: END 07:15
PROVIDERS: ATTEND Internal Medicine Gastroenterology
DX: Z12.11 Encounter for screening for malignant neoplasm of colon (principal); K64.8 Other hemorrhoids; K63.5 Polyp of colon; Z86.010 Personal history of colon polyps; E78.2 Mixed hyperlipidemia; I10 Essential (primary) hypertension; F17.210 Nicotine dependence, cigarettes, uncomplicated; K75.81 Nonalcoholic steatohepatitis (NASH); E11.42 Type 2 diabetes mellitus with diabetic polyneuropathy; R01.1 Cardiac murmur, unspecified; K21.9 Gastro-esophageal reflux disease without esophagitis; E78.5 Hyperlipidemia, unspecified; Z87.892 Personal history of anaphylaxis; Z79.899 Other long term (current) drug therapy; Z79.01 Long term (current) use of anticoagulants; Z88.1 Allergy status to other antibiotic agents
CPT/HCPCS: 45380; 82962; 88305 ×2; 00811; J2704; 811

== ENCOUNTER → 2019-05-12 | Outpatient (CLI) | payer MEDICARE, OTHER | LOC: OD 11:21 | PROVIDERS: ATTEND Otolaryngology | DX: J30.9 Allergic rhinitis, unspecified (principal) | CPT/HCPCS: 36415; 82785; 86003 ==

== ENCOUNTER → 2019-11-05 | Outpatient (CLI) | payer MEDICARE, OTHER ==
--- NOTE | 2019-11-05 15:16 | RADIOLOGY REPORT (SQ) ---
EXAM DESCRIPTION: C SP 4 OR 5 VIEWS IMAGES COMPLETED DATE/TIME: 11/05/2019 2:36 pm REASON FOR STUDY: CERVICALGIA M54.2 CERVICALGIA COMPARISON: None. NUMBER OF VIEWS: Five views TECHNIQUE: AP, lateral, obliques and odontoid radiographic images acquired of the cervical spine. LIMITATIONS: None. FINDINGS: MINERALIZATION: Decreased. ALIGNMENT: Straightening of the normal cervical lordosis. VERTEBRAE: Vertebral body are normal height. Multilevel osteophytosis. DISCS: Multilevel disc height loss with osteophytosis and uncovertebral hypertrophy greatest at C5-6 and C6-7. FORAMINA: Moderate osseous neural foraminal narrowing greatest at C5-6 and C6-7 secondary to uncovert ebral facet hypertrophy bilaterally. LATERAL AND POSTERIOR ELEMENTS: No definite fracture dislocation. Multilevel facet arthropathy. Philip cification of the interspinous ligament HARDWARE: None in the spine. SOFT TISSUES: Vascular calcifications. OTHER: No other significant finding. IMPRESSION: 1. No definite acute bony abnormality of the cervical spine. 2. Multilevel degenerative disc disease with at least moderate osseous neural foraminal narrowing gr eatest at C5-6 and C6-7 bilaterally secondary to facet and uncovertebral hypertrophy. TECHNICAL DOCUMENTATION: JOB ID: [id number] 2010 [employer]- All Rights Reserved Reading location - IP/workstation name: [email or web address]
== END ==
LOC: OD 14:22
PROVIDERS: ATTEND Family Medicine
DX: M50.323 Other cervical disc degeneration at C6-C7 level (principal)
CPT/HCPCS: 72050

== ENCOUNTER → 2020-06-02 | Outpatient (CLI) | payer MEDICARE, OTHER ==
--- NOTE | 2020-06-02 12:16 | RADIOLOGY REPORT (SQ) ---
EXAM DESCRIPTION: U/S ABDOMEN LIMITED W/O DOP IMAGES COMPLETED DATE/TIME: 06/02/2020 9:00 am REASON FOR STUDY: ABDOMINAL DISTENSION R14.0 ABDOMINAL DISTENSION (GASEOUS) R01.1 CARDIAC MURMUR, UNSPECIFIED COMPARISON: CT of the abdomen and pelvis without contrast from 02/05/2017. TECHNIQUE: Dynamic and static grayscale images acquired of the abdomen and recorded on PACS. Additio nal selected color Doppler and spectral images recorded. LIMITATIONS: None. FINDINGS: PANCREAS: The visualized portions of the pancreas appear normal. LIVER: Increased echogenicity of hepatic parenchyma associated with attenuation of the far field. LIVER VASCULATURE: Hepatopetal directional flow in the portal vein. GALLBLADDER: The gallbladder wall measures 2.5 mm in thickness. The shadowing echogenic foci within the dependent portion of the gallbladder likely represent choleliths. There is no pericholecystic flu id. ULTRASOUND-DETECTED COTTER'S SIGN: Negative. INTRAHEPATIC DUCTS AND COMMON DUCT: The common bile duct measures 10.1 mm in diameter. There is no d ilatation of the intrahepatic ducts. INFERIOR VENA CAVA: Not assessed. AORTA: No aneurysm. RIGHT KIDNEY: The right kidney measures 10.4 cm in length. There is no hydronephrosis. PERITONEAL AND RIGHT PLEURAL SPACE: No ascites or effusions. OTHER: No other findings. IMPRESSION: 1. Increased echogenicity of the hepatic parenchyma suggestive of underlying diffuse he patocellular disease most commonly hepatic steatosis. 2. Cholelithiasis. 3. Prominence of the common bile duct at the ella hepatis (10 mm) which is unchanged compared to the CT from 02/05/2017 and considered age-appropriate given the patient's age. There is no dilatation of t he intrahepatic ducts. TECHNICAL DOCUMENTATION: JOB ID: [id number] 2010 [employer]- All Rights Reserved Reading location - IP/workstation name: [email or web address]
--- NOTE | 2020-06-02 13:36 | XCELERA REPORT ---
[address] [address] Transthoracic Echocardiogram Report Name: BHARAT TOMPKINS Age: 85 yrs Gender: Female : 1935 Patient Status: Outpatient Patient Location: RAD Study Date: 06/02/2020 08:58 AM History: Cardiac murmur Height: 59 in Weight: 170 lb BSA: 1.7 m2 Procedure: A complete two-dimensional transthoracic echocardiogram was performed (2D, M-mode, spectral and color flow Doppler). The study was technically adequate with some images being suboptimal in quality. Reason For Study: MURMUR Previous Evaluation: A previous study was performed on 10/10/2018 LVEF Normal.; Mild to moderate . History: Mild to Moderate . Ordering Physician: SHERRY PAVON Performed By: Ceci Pimentel Interpretation Summary Left ventricular systolic function is normal. The Ejection Fraction estimate is 55-60% The right ventricle is normal in size and function. There is a trace amount of mitral regurgitation There is mild to moderate aortic stenosis There is a mild amount of tricuspid regurgitation There is no pericardial effusion. MMode/2D Measurements & Calculations RVDd: 2.5 cm LVIDd: 4.5 cm FS: 38.1 % Ao root diam: 2.1 cm IVSd: 1.4 cm LVIDs: 2.8 cm EDV(Teich): 94.8 ml Ao root area: 3.5 cm2 LVPWd: 1.2 cm ESV(Teich): 30.0 ml EF(Teich): 68.4 % LVOT diam: 1.8 cm LVOT area: 2.6 cm2 Doppler Measurements & Calculations MV E max koko: MV dec slope: Ao V2 max: LV V1 max P.0 cm/sec 316.9 cm/sec2 283.3 cm/sec 1.6 mmHg MV A max koko: MV dec time: Ao max PG: LV V1 mean P.6 cm/sec 0.22 sec 32.1 mmHg 0.76 mmHg MV E/A: 0.67 Ao V2 mean: LV V1 max: 195.5 cm/sec 62.7 cm/sec Ao mean PG: LV V1 mean: 17.0 mmHg 40.3 cm/sec Ao V2 VTI: 63.2 cm LV V1 VTI: 18.4 cm LYSSA(I,D): 0.76 cm2 LYSSA(V,D): 0.58 cm2 SV(LVOT): 48.0 ml PA V2 max: 61.0 cm/sec PA max P.5 mmHg Left Ventricle The left ventricle is normal in size. There is moderate concentric left ventricular hypertrophy. Left ventricular systolic function is normal. The Ejection Fraction estimate is 55-60%. Doppler measurements suggest impaired left ventricular relaxation, which is associated with grade I/IV or mild diastolic dysfunction. No regional wall motion abnormalities noted. Right Ventricle The right ventricle is normal in size and function. Atria The right atrium is normal. The left atrial size is normal. Mitral Valve There is mild mitral leaflet calcification. There is a trace amount of mitral regurgitation. Aortic Valve The aortic valve is mildly calcified. The aortic valve is sclerotic and shows some degree of functional abnormality. Mean PG=17 mm Hg Vmax= 2.94 m/s. There is mild to moderate aortic stenosis. Tricuspid Valve The tricuspid valve is not well visualized, but is grossly normal. There is no tricuspid stenosis. There is a mild amount of tricuspid regurgitation. Pulmonic Valve The pulmonic valve is not well visualized. There is no pulmonic valvular stenosis. There is a trace or physiologic amount of pulmonic regurgitation. Great Vessels The aortic root is normal size. The inferior vena cava appeared normal and decreased > 50% with respiration (RAP 5-10 mmHg). Effusions There is no pericardial effusion. : SHERRY PAVON, Pan
== END ==
LOC: RAD 08:14
PROVIDERS: ATTEND Nurse Practitioner Family
DX: K80.20 Calculus of gallbladder without cholecystitis without obstruction (principal); R14.0 Abdominal distension (gaseous); R01.1 Cardiac murmur, unspecified
CPT/HCPCS: 76705; 93306